=== PATIENT | male | born 1990 | race American Indian/Alaskan Native ===

== ENCOUNTER 2022-03-22 10:23 | Outpatient (CLI) | payer OTHER ==
[2022-03-26 18:04] LABS: CD4/CD8 Ratio 0.21 (0.86-5.00)
== END 2022-03-22 10:24 | disposition home or self-care (01) ==
LOC: LAB 10:23
PROVIDERS: ATTEND Internal Medicine
DX: Z02.71 Encounter for disability determination (principal)
CPT/HCPCS: 36415; 82024